=== PATIENT | male | born 1940 | race Caucasian/White ===

== ENCOUNTER → 2016-05-26 | Outpatient (CLI) | payer MEDICARE, BC ==
--- NOTE | ~2016-05-26 | PUL ---
PATIENT'S NAME: ZONIA ALVARADO [facility] AGE: 75 Y [address] ROOM: [place] [id number] LOCATION: [facility] ADMIT DATE: 05/26/2016 Pulmonary DISCHARGE DATE: FAMILY PHYSICIAN: Isaiah Henriquez MD ATTENDING PHYSICIAN: Matias Haas NAME OF PROCEDURE: Cardiopulmonary Exercise Test DATE OF PROCEDURE: May 26, 2016 TECH: ATripe, DOCUMENT SPECIALIST REASON FOR EXAM: Dyspnea MEDICAL HISTORY: The patient is a 75-year-old gentleman with obstructive lung disease and unexplained dyspnea. RESULTS: Pulmonary data pre exercise pulmonary function testing demonstrates mild to moderate airflow obstruction without significant improvement post bronchodilator. Lung volumes demonstrate air trapping, diffusing capacity is mildly reduced. Exercise did not induce hypoxemia. Cardiac data resting 12-lead EKG demonstrated no abnormalities. No dysrhythmias or ischemic changes were noted. O2 pulse at peak exercise indicates normal cardiac output. Blood pressure response to exercise was excessive. Exercise data patient exercised on a bicycle ergometer. He reached 64% of his predicted maximum oxygen consumption. He reached 85% of his maximum heart rate. Exercise limited by shortness of breath and leg fatigue. SUMMARY: 1. Mild limitation to exercise consistent with his obstructive lung disease. 2. Hypertensive response to exercise which probably should be addressed by his policy specialist. Copy this note to Dr. Flores and Dr. Henriquez and copy to my office. MATIAS HAAS MD PATIENT'S NAME: ZONIA ALVARADO [facility] AGE: 75 Y [address] ROOM: [place] [id number] LOCATION: [facility] ADMIT DATE: 05/26/2016 Pulmonary DISCHARGE DATE: FAMILY PHYSICIAN: Isaiah Henriquez MD ATTENDING PHYSICIAN: Matias Haas /[id number] dtt: 05/30/16 1018 , Matias Haas dtd: 05/30/16 0730
[2016-05-26 10:02] LABS: BICARBONATE 19.9 mmol/L (18.0-23.0); PCO2 30 mmHg (35-45); PO2 69 mmHg (80-90)
== END | disposition disaster alternative care site (69) ==
LOC: GCAR 05-20 08:30
PROVIDERS: Internal Medicine Pulmonary Disease
DX: R06.02 Shortness of breath (principal)